=== PATIENT | female | born 2000 | race Caucasian/White ===

== ENCOUNTER 2022-06-05 10:06 | Emergency (ER) | payer BC ==
[2022-06-05] MEDS ORDERED: Acetaminophen 500 MG TAB ONE (11:34)
[2022-06-05] MEDS ORDERED: cefTRIAXone\\ROCEPHIN 500 MG VIAL ONE (13:31)
[2022-06-05 13:37] LABS: #Basophils 0.1 10x3/uL (0.0-0.2); #Monocytes 0.8 10x3/uL (0.0-1.1); #Neutrophils 14.4 10x3/uL (1.5-8.4); %Basophils 0.4 % (0.0-2.0); %Eosinophils 0.1 % (0.0-6.0); %Lymphocytes 7.6 % (18.0-47.0); %Monocytes 4.6 % (0.0-10.0); %Neutrophils 86.8 % (40.0-75.0); Hemoglobin 12.3 g/dL (12.0-15.5); Mean Corpuscular HGB CONC 32.2 g/dL (32.0-36.0); Mean Corpuscular Hemoglobin 27.8 pg (27.0-33.0); Mean Corpuscular Volume 86.2 fl (81.6-98.3); Mean Platelet Volume 10.1 fl (7.4-10.4); Platelet Count 397 10x3/uL (150-450); Red Blood Cell (RBC) Count 4.43 10x6/uL (3.90-5.03); White Blood Cell (WBC) Count 16.6 10x3/uL (3.5-10.5)
[2022-06-05 13:39] LABS: Bilirubin Neg (Negative); Blood, Urine 150 (Negative); Clarity Slightly Cloudy (Clear); Glucose, Urine (Dipstick) Normal (Negative); Ketone, Urine Negative (Negative); Leukocyte 500 (Negative); Nitrite Negative (Negative); Protein, Urine (Dipstick) 30 mg/dl (Neg-Trace)
[2022-06-05 13:42] LABS: BHCG - Serum Negative (NEGATIVE); Pregs Control Background? CLEAR/WHITE (CLR/WHITE); Pregs Control Bar Appear? YES (CONTROL BAR)
[2022-06-05 13:49] LABS: ALT (SGPT) 9 U/L (8-55); AST (SGOT) 13 U/L (5-34); Albumin 4.3 g/dL (3.5-5.0); Alkaline Phosphatase 83 U/L (40-110); Anion Gap 13 mmol/L (10-20); BUN (Urea Nitrogen) 7 mg/dL (7.0-18.7); Bilirubin, Total 0.8 mg/dL (0.2-1.2); Calc. Creatinine Clearance 0 mL/min (70-130); Calcium 9.8 mg/dL (7.8-10.44); Carbon Dioxide 24 mmol/L (22-29); Chloride 103 mmol/L (98-107); Estimated GFR 116; Globulin 3.5 g/dL (2.4-3.5); Glucose 112 mg/dL (70-105); Lipase 13 U/L (8-78); Potassium 3.9 mmol/L (3.5-5.1); Protein, Total 7.8 g/dL (6.0-8.3); Sodium 136 mmol/L (136-145)
[2022-06-05] MEDS ORDERED: Iopamidol 300 61% 100 ML VIAL FS ONE (13:50)
[2022-06-05 13:54] LABS: Bacteria/HPF 2+ HPF (None Seen); Renal Epithelial 0-3 HPF (None Seen); WBC/HPF Greater than 50 HPF (0-3)
[2022-06-05] MEDS ORDERED: Ketorolac Tromethamine 30 MG/ML VIAL ONE (14:59)
[2022-06-06 10:34] LABS: Chlamydia by PCR Not Detected (NotDetected); GC by PCR DETECTED (NotDetected)
== END 2022-06-05 15:35 | disposition home or self-care (01) ==
LOC: CSHERS 10:06
DX: N76.0 Acute vaginitis (principal)
CPT/HCPCS: 74177; 80053; 81001; 83690; 84703; 85025; 87086; 87480; 87491; 87510; 87591; 87660; 96365; 96375; J0696; J1885; Q9967